=== PATIENT | female | born 1975 | race Caucasian/White ===

== ENCOUNTER 2022-07-11 13:38 | Emergency (ER) | payer OTHER, SELFPAY ==
[2022-07-11 13:53] VITALS: BP 130/90; PULSE 68; RESP 16; TEMP 36.7; O2SAT 99
--- NOTE | 2022-07-11 13:55 | ECG_ITS ---
Measurements Intervals [place] Rate: 62 P: 27 GA: 182 QRS: 4 QRSD: 91 T: -4 QT: 359 QTc: 367 Interpretive Statements SINUS RHYTHM NO PREVIOUS ECG AVAILABLE FOR COMPARISON Electronically Signed On 07-11-2022 14:36:07 CDT by Nolan Francis M.D.
--- NOTE | 2022-07-11 13:58 | ED.GENADULT ---
HPI - General Adult General Chief complaint: Chest Pain Stated complaint: cp Time Seen by Provider: 07/11/22 13:50 Source: patient and RN notes reviewed Mode of arrival: ambulatory Limitations: no limitations History of Present Illness HPI narrative: 47-year-old female presents to the [facility] with complaints of chest pain that started at 11:30 a.m. this morning. Had gone to the clinic at her work and was told to seek medical care for chest pain. Denies any radiation of pain. Denies any shortness breath, nausea, vomiting or diaphoresis. Has a history of hypertension and obesity. Onset (ago): hour(s) (2.5) Related Data Allergies Allergy/AdvReac Type Severity Reaction Status Date / Time No Known Allergies Allergy Verified 07/11/22 13:48 Review of Systems Review of Systems: All systems reviewed & are unremarkable except as noted in HPI and below Constitutional: Constitutional: Reports no additional constitutional complaints, Denies chills and Denies fever(s) Eyes: Eyes: Reports no additional eye complaints ENT: Reports system reviewed and no additional complaints, except as documented Cardiovascular: Cardiovascular: Reports as per HPI and Reports chest pain Respiratory: Respiratory: Reports no additional respiratory complaints Gastrointestinal: Gastrointestinal: Reports no additional gastrointestinal complaints Musculoskeletal: Musculoskeletal: Reports no additional musculoskeletal complaints Integumentary/Breasts: Skin/Breast: Reports system reviewed and no additional complaints, except as docu Neurologic: Reports system reviewed and no additional complaints, except as documented Psychiatric: Psychiatric: Reports no additional psychiatric complaints Allergic/Immunologic: Allergic/Immunologic: Reports no additional allergic/immunologic complaints [facility] Family History Family History Father Hepatitis C Mother Diabetes mellitus Hypertension Hypercholesterolemia Grandparent Diabetes mellitus Cerebrovascular accident Heart disease Hypercholesterolemia Hypertension Social History Social History Smoking status: Never smoker Second hand tobacco smoke exposure: No Alcohol intake: current Alcohol use details: Ocassional Substance use: never Substance use type: does not use Gender identity (if verbalized by the patient): Female Sexual Orientation (if Verbalized by the Patient): Straight or Heterosexual Spiritual care concerns: No Agree to blood products: Yes Comments At the time of my signature, I reviewed and agree with the nursing past medical, surgical, social, and family history. There is no relevant family history pertinent to the patient complaint. Exam Const: General: healthy appearing, no acute distress, alert and well nourished Nutritional Appearance: well nourished and obese Orientation/consciousness: patient oriented x3 Limitations: no limitations HENMT: Head: normal to inspection Ears: external ears normal Eyes: General: appearance normal, both eyes and all related structures Pupils: Equal, round and reactive pupils present Neck: Neck: normal visual inspection, no lymphadenopathy and no meningeal signs Chest: Chest palpation & inspection: normal inspection of the chest Resp: Effort & Inspection: normal respiratory effort and no use of accessory muscles Auscultation: clear to auscultation bilaterally, no crackles, no rales, no rhonchi and no wheezes Cardio: Rate: regular rate Rhythm: regular rhythm Skin: General skin exam: normal color Rashes: no rashes Wounds: no wounds Neuro: General: patient oriented x3, moves all extremities, no meningeal signs and no focal motor deficits Cranial nerves: Yes Equal, round and reactive pupils present Speech: normal speech Gait exam (Neuro): Normal gait present Extrem: General: normal to inspection, full ROM a
--- NOTE | 2022-07-11 14:00 | PC.NURSE ---
requested to go to [facility] on [address] and spouse at bedside to provide transportation.
== END 2022-07-11 14:07 | disposition short-term general hospital (02) ==
PROVIDERS: Emergency Provider Nurse Practitioner; PCP Family Medicine Adolescent Medicine
DX: R07.9 Chest pain, unspecified (principal); I10 Essential (primary) hypertension
CPT/HCPCS: 93005; 99213; G0463

== ENCOUNTER → 2023-03-25 07:44 | Outpatient (CLI) | payer OTHER, SELFPAY ==
--- NOTE | ~2023-03-25 | US_ITS ---
Ultrasound of the left upper quadrant CLINICAL HISTORY: Palpable soft tissue lump TECHNIQUE: Realtime scanning performed in the left upper quadrant area of palpable concern. FINDINGS: No solid or cystic lesion identified in the region scanned. No sonographic abnormality seen in the region scanned. IMPRESSION: No abnormality seen in the region scanned at the left upper quadrant. Reviewed, dictated and finalized at location .
== END ==
PROVIDERS: PCP Family Medicine Adolescent Medicine; Visit Provider Nurse Practitioner Family
DX: R19.02 Left upper quadrant abdominal swelling, mass and lump (principal)
CPT/HCPCS: 76705

== ENCOUNTER 2023-07-04 01:05 | Day surgery (SDC) | payer OTHER, SELFPAY ==
[2023-06-24 13:49] VITALS: BMI 34.4
[2023-07-04 06:24] VITALS: BP 142/92; PULSE 77; RESP 20; TEMP 37; O2SAT 99; BMI 35.0
[2023-07-04] MEDS: LACTATED RINGERS 1,000 ML 150 ML IV CONT (06:35)
--- NOTE | 2023-07-04 07:21 | P.PNAN_ITS ---
Anes - Initial Pre Proc Eval Procedure: Operation Date: 07/04/23 07:30 Proposed Procedures p Screening Colonoscopy - Santos Amezquita MD Date/Time: 07/04/23 07:21 Surgeon: Santos Amezquita MD Pre Op Diagnosis: neoplasm screening Patient Data Age: 48 Gender: F Height: 1.65 m Weight: 95.6 kg Last Vital Signs Temp 98.6 F 07/04/23 06:24 Pulse 77 07/04/23 06:24 Resp 20 07/04/23 06:24 BP 142/92 H 07/04/23 06:24 Pulse Ox 99 07/04/23 06:24 O2 Del Method Room Air 07/04/23 06:24 Allergies Allergy/AdvReac Type Severity Reaction Status Date / Time pseudoephedrine AdvReac Unknown Unknown Verified 07/04/23 06:23 [From [facility]] Home Medications Medication Instructions Recorded Confirmed Type propranolol 80 mg capsule,24 80 mg PO DAILY #90 caps 03/19/23 06/24/23 Rx hr,extended release estradiol 1 mg-progesterone 100 mg 2 cap PO QPM 06/24/23 06/24/23 History capsule liothyronine 5 mcg tablet 10 mcg PO DAILY 06/24/23 06/24/23 History Patient hx anesthesia problems: none Family hx anesthesia problems: none Results Review: All pre-operative results and documents have been reviewed as part of the pre- operative evaluation. [facility] Family History Family History Father Hepatitis C Mother Diabetes mellitus Hypertension Hypercholesterolemia Grandparent Diabetes mellitus Cerebrovascular accident Heart disease Hypercholesterolemia Hypertension Social History Social History Smoking status: Never smoker Second hand tobacco smoke exposure: No Alcohol intake: never Alcohol use details: Ocassional Substance use: never Substance use type: does not use Living arrangements: with family Occupation/Education: occupation Gender identity (if verbalized by the patient): Female Sexual Orientation (if Verbalized by the Patient): Straight or Heterosexual Spiritual care concerns: No Agree to blood products: Yes Anes - Eval Final PreProcedure Day of Procedure 07/04/23 07:21 Patient weight: obese Heart: regular rate and rhythm Lungs: clear to auscultation Airway: Mallampati scale class II Neurological: alert and oriented Last oral intake: >/= 8 hours ASA classification: II Emergent: no Anesthetic plan: proceed Anesthesia type and monitoring: general GIVS and standard monitoring Results Review: All pre-operative results and documents have been reviewed as part of the pre- operative evaluation. Informed Consent: The patient's anesthetic plan and its attendant risks and benefits were discussed with the patient/family/POA. Questions were solicited and answers provided to the satisfaction of the patient/family/POA.
--- NOTE | 2023-07-04 07:22 | P.HP_ITS ---
History of Present Illness History of Present Illness Consent: Risks, benefits, and alternatives have been discussed and questions answered. Patient agrees to proceed with procedure. Chief complaint: neoplasm screening Narrative: Zofia Campbell is a 48 year old female Presents for screening colonoscopy. Patient's current weight appetite and bowel movements are normal. Patient denies abdominal pain. She has had no bleeding. Family history noncontributory . Review of Systems Review of Systems: Review of systems noncontributory. [facility] Family History Family History Father Hepatitis C Mother Diabetes mellitus Hypertension Hypercholesterolemia Grandparent Diabetes mellitus Cerebrovascular accident Heart disease Hypercholesterolemia Hypertension Social History Social History Smoking status: Never smoker Second hand tobacco smoke exposure: No Alcohol intake: never Alcohol use details: Ocassional Substance use: never Substance use type: does not use Living arrangements: with family Occupation/Education: occupation Gender identity (if verbalized by the patient): Female Sexual Orientation (if Verbalized by the Patient): Straight or Heterosexual Spiritual care concerns: No Agree to blood products: Yes Meds Home Medications and Allergies Home Medications Medication Instructions Recorded Confirmed Type propranolol 80 mg capsule,24 80 mg PO DAILY #90 caps 03/19/23 06/24/23 Rx hr,extended release estradiol 1 mg-progesterone 100 mg 2 cap PO QPM 06/24/23 06/24/23 History capsule liothyronine 5 mcg tablet 10 mcg PO DAILY 06/24/23 06/24/23 History Allergies Allergy/AdvReac Type Severity Reaction Status Date / Time pseudoephedrine AdvReac Unknown Unknown Verified 07/04/23 06:23 [From [facility]] Vital Signs Vital Signs - 24 hr 07/04/23 06:24 Temperature 98.6 F Pulse Rate 77 Respiratory Rate 20 Blood Pressure 142/92 H Pulse Oximetry 99 Oxygen Delivery Room Air Exam Narrative: Physical exam reveals patient to be alert. Vital signs stable. HEENT exam is unremarkable. Patient is anicteric. Lungs are clear to auscultation and percussion. Heart is without murmur or extra sounds. Abdomen bowel sounds are present soft nontender with no organomegaly. Digital external rectal exam normal. Assessment and Plan Assessment and plan (1) Colon cancer screening: Code(s): Z12.11 - Encounter for screening for malignant neoplasm of colon Status: Acute Assessment and Plan: Patient presents for screening colonoscopy. She appears to be at average risk for colon polyps. Further recommendations may be given after endoscopy.
[2023-07-04 07:49] VITALS: BP 109/76; PULSE 77; RESP 17; O2SAT 98
[2023-07-04 07:59] VITALS: BP 106/72; PULSE 64; RESP 18; O2SAT 99
== END 2023-07-04 08:15 | disposition home or self-care (01) ==
PROVIDERS: PCP Family Medicine Adolescent Medicine; Visit Provider Internal Medicine Gastroenterology
PROC: 0DJD8ZZ Inspection of Lower Intestinal Tract, Via Natural or Artificial Opening Endoscopic (ICD-10-PCS; CPT 45378; principal; 2023-07-04 07:30)
DX: Z12.11 Encounter for screening for malignant neoplasm of colon (principal); E66.9 Obesity, unspecified; Z68.35 Body mass index [BMI] 35.0-35.9, adult
CPT/HCPCS: 45378; J2704; J7120